=== PATIENT | female | born 2000 | race Caucasian/White ===

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

== ENCOUNTER 2020-11-28 18:16 | Outpatient (CLI) | payer OTHER ==
[~2020-11-28 18:16] MED LIST: CLEOCIN HCL300 MG PO; DOXYCYCLINE HY100 MG PO; FLAGYL500 MG PO; FLEXERIL 10 MG10 MG PO; IBU800 MG PO; PEPCID20 MG PO; PHENERGAN 12.12.5 M1 PO; PHENERGAN25 MG PR; PROTONIX40 MG PO; VIBRAMYCIN100 MG PO; ZOFRAN4 MG PO
== END 2020-11-28 21:54 | disposition home or self-care (01) ==
LOC: GENOP 18:16
DX: O99.891 Other specified diseases and conditions complicating pregnancy (principal); M54.9 Dorsalgia, unspecified; R04.0 Epistaxis; Z3A.25 25 weeks gestation of pregnancy; Z20.822 Contact with and (suspected) exposure to COVID-19
CPT/HCPCS: 59025; 81001; 96360; J2550; U0002

== ENCOUNTER → 2021-01-09 | Outpatient (CLI) | payer OTHER | LOC: GENOP 22:37 | DX: O46.93 Antepartum hemorrhage, unspecified, third trimester (principal); Z3A.30 30 weeks gestation of pregnancy | CPT/HCPCS: 81001; G0463 ==

== ENCOUNTER 2021-01-22 22:06 | Outpatient (CLI) | payer OTHER | END 2021-01-23 00:57 | disposition home or self-care (01) | LOC: GENOP 22:06 | DX: O62.9 Abnormality of forces of labor, unspecified (principal); Z3A.30 30 weeks gestation of pregnancy; Z87.891 Personal history of nicotine dependence | CPT/HCPCS: 81001; 96360; 96361; 96374; J2405 ==

== ENCOUNTER 2021-02-01 14:41 | Outpatient (CLI) | payer OTHER ==
[~2021-02-01] VITALS: Ht 152.4 cm; Wt 104.3 kg
== END 2021-02-02 02:20 | disposition home or self-care (01) ==
LOC: GENOP 14:41
PROVIDERS: Obstetrics & Gynecology
DX: O42.913 Preterm premature rupture of membranes, unspecified as to length of time between rupture and onset of labor, third trimester (principal); O99.891 Other specified diseases and conditions complicating pregnancy; M54.9 Dorsalgia, unspecified; O62.4 Hypertonic, incoordinate, and prolonged uterine contractions; O99.353 Diseases of the nervous system complicating pregnancy, third trimester; G43.909 Migraine, unspecified, not intractable, without status migrainosus; Z3A.34 34 weeks gestation of pregnancy; Z87.440 Personal history of urinary (tract) infections
CPT/HCPCS: 80307; 81001; 83518; 96360; 96361; 96365; 96372; J2300; J3105; J7120

== ENCOUNTER 2021-02-02 07:01 | Outpatient (CLI) | payer OTHER | END 2021-02-02 11:01 | disposition other institution (70) | LOC: GENOP 07:01 | DX: O62.9 Abnormality of forces of labor, unspecified (principal); Z3A.33 33 weeks gestation of pregnancy | CPT/HCPCS: 51702; 96360; 96361; 96365; 96366; 96367; 96372; J0595; J0690; J0702; J2270; J3410; J3475 ==

== ENCOUNTER → 2021-09-27 | Emergency (ER) | payer OTHER ==
[~2021-09-27] MED LIST changes: +CEFUROXIME500 MG PO
[2021-09-27 11:09] LABS: HEMOGLOBIN 14.4 gm/dl (12.3-15.3); RED BLOOD COUNT 4.48 M/UL (4.00-5.10); WHITE BLOOD COUNT 6.5 K/UL (4.5-11.0)
[2021-09-27 11:39] LABS: BUN/CREATININE RATIO 11 (0-10)
== END | disposition home or self-care (01) ==
LOC: ER1 10:05
PROVIDERS: Nurse Practitioner
DX: R31.9 Hematuria, unspecified (principal); R10.816 Epigastric abdominal tenderness; Z88.2 Allergy status to sulfonamides; F17.290 Nicotine dependence, other tobacco product, uncomplicated
CPT/HCPCS: 80053; 81001; 82550; 82553; 83690; 83874; 84484; 84703; 85025; 86140; 96374; 96375; 99284; C9113; J1885; J2405

== ENCOUNTER 2021-10-02 18:57 | Emergency (ER) | payer OTHER | END 2021-10-02 20:00 | disposition left against medical advice (07) | LOC: ER1 18:57 | DX: Z53.21 Procedure and treatment not carried out due to patient leaving prior to being seen by health care provider (principal) ==

== ENCOUNTER 2021-11-04 01:42 | Emergency (ER) | payer OTHER ==
[2021-11-04 02:19] LABS: HEMOGLOBIN 12.9 gm/dl (12.3-15.3); RED BLOOD COUNT 4.2 M/UL (4.00-5.10); WHITE BLOOD COUNT 6.5 K/UL (4.5-11.0)
[2021-11-04 02:55] LABS: BUN/CREATININE RATIO 14 (0-10)
[2021-11-04] MEDS ORDERED: ZOFRAN ODT 4 MG4 MG PO (04:41)
[2021-11-04] MEDS ORDERED: LODINE CAP 300300 MG PO (04:41)
[2021-11-04] MEDS ORDERED: BENTYL 20MG TAB20 MG PO (04:41)
== END 2021-11-04 06:44 | disposition home or self-care (01) ==
LOC: ER1 01:42
PROVIDERS: Physician Assistant
DX: I88.0 Nonspecific mesenteric lymphadenitis (principal); F17.290 Nicotine dependence, other tobacco product, uncomplicated; Z88.2 Allergy status to sulfonamides
CPT/HCPCS: 80053; 81001; 83605; 83690; 84703; 85025; 87086; 96374; 96375; 99284; J1885; J2405; Q9967

== ENCOUNTER 2021-11-15 03:12 | Emergency (ER) | payer OTHER ==
[~2021-11-15 03:12] MED LIST changes: +BENTYL 20MG TAB20 MG PO; +LODINE CAP 300300 MG PO; +ZOFRAN ODT 4 MG4 MG PO
[2021-11-15 03:31] LABS: HEMOGLOBIN 14.5 gm/dl (12.3-15.3); RED BLOOD COUNT 4.68 M/UL (4.00-5.10); WHITE BLOOD COUNT 4.7 K/UL (4.5-11.0)
[2021-11-15 03:54] LABS: BUN/CREATININE RATIO 14 (0-10)
[2021-11-15] MEDS ORDERED: ZOFRAN 4 MG TAB4 MG PO (04:56)
[2021-11-15] MEDS ORDERED: PROTONIX40 MG PO (05:01)
== END 2021-11-15 05:20 | disposition home or self-care (01) ==
LOC: ER1 03:12
PROVIDERS: Physician Assistant
DX: R10.9 Unspecified abdominal pain (principal); R10.816 Epigastric abdominal tenderness; Z88.2 Allergy status to sulfonamides; F17.200 Nicotine dependence, unspecified, uncomplicated; R00.0 Tachycardia, unspecified
CPT/HCPCS: 80053; 81001; 83690; 84703; 85025; 96374; 96375; 99284; C9113; J2405

== ENCOUNTER → 2021-11-21 | Outpatient (CLI) | payer OTHER ==
[~2021-11-21] MED LIST changes: +ZOFRAN 4 MG TAB4 MG PO
== END ==
LOC: KOH-I 09:43
DX: R10.84 Generalized abdominal pain (principal); R79.89 Other specified abnormal findings of blood chemistry; K80.20 Calculus of gallbladder without cholecystitis without obstruction
CPT/HCPCS: 76705

== ENCOUNTER → 2021-12-05 | Day surgery (SDC) | payer OTHER ==
[~2021-12-05] MED LIST changes: +ADIPEX-P37.5 M1 PO; +CEFDINIR300 MG PO; +HYDROCODON-ACE1 EAC4 PO; +ONDANSETRON ODT4 MG PO
== END | disposition home or self-care (01) ==
LOC: OR 07:08
DX: K80.64 Calculus of gallbladder and bile duct with chronic cholecystitis without obstruction (principal); Z20.822 Contact with and (suspected) exposure to COVID-19; Z88.2 Allergy status to sulfonamides; Z97.5 Presence of (intrauterine) contraceptive device; Z87.891 Personal history of nicotine dependence
CPT/HCPCS: C1729; J0690; J1170; J1885; J2250; J2704; J3010; J7030; J7120

== ENCOUNTER 2021-12-07 16:24 | Emergency (ER) | payer OTHER ==
[2021-12-07 17:15] LABS: HEMOGLOBIN 13.1 gm/dl (12.3-15.3); RED BLOOD COUNT 4.16 M/UL (4.00-5.10); WHITE BLOOD COUNT 7.1 K/UL (4.5-11.0)
[2021-12-07 17:38] LABS: BUN/CREATININE RATIO 14 (0-10)
== END 2021-12-07 17:27 | disposition home or self-care (01) ==
LOC: ER1 16:24
PROVIDERS: Nurse Practitioner
DX: R10.13 Epigastric pain (principal); R10.817 Generalized abdominal tenderness; Z88.2 Allergy status to sulfonamides; F17.290 Nicotine dependence, other tobacco product, uncomplicated
CPT/HCPCS: 80053; 80076; 81001; 82150; 83690; 85025; 99283

== ENCOUNTER 2021-12-10 03:02 | Emergency (ER) | payer OTHER ==
[2021-12-10 03:26] LABS: HEMOGLOBIN 13.3 gm/dl (12.3-15.3); RED BLOOD COUNT 4.2 M/UL (4.00-5.10); WHITE BLOOD COUNT 7.8 K/UL (4.5-11.0)
[2021-12-10 03:44] LABS: BUN/CREATININE RATIO 16 (0-10)
[2021-12-10] MEDS ORDERED: PROTONIX40 MG PO (05:35)
[2021-12-10] MEDS ORDERED: CARAFATE1 GM PO (05:35)
[2021-12-10] MEDS ORDERED: ONDANSETRON ODT4 MG SL (05:35)
[2021-12-10] MEDS ORDERED: CEPHALEXIN500 M1 PO (05:35)
[2021-12-11 09:16] LABS: HBSAG SCREEN Negative (Negative); HEP A AB, IGM Negative (Negative); HEP B CORE AB, IGM Negative (Negative); HEP C VIRUS AB <0.1 (0.0-0.9)
== END 2021-12-10 05:58 | disposition home or self-care (01) ==
LOC: ER1 03:02
PROVIDERS: Physician Assistant
DX: N39.0 Urinary tract infection, site not specified (principal); Z90.49 Acquired absence of other specified parts of digestive tract; R79.89 Other specified abnormal findings of blood chemistry; F17.290 Nicotine dependence, other tobacco product, uncomplicated; Z88.2 Allergy status to sulfonamides; J45.909 Unspecified asthma, uncomplicated
CPT/HCPCS: 80053; 80074; 81001; 83690; 84703; 85025; 96374; 96375; 99284; C9113; J2270; J2405

== ENCOUNTER → 2021-12-11 | Outpatient (CLI) | payer OTHER ==
[~2021-12-11] MED LIST changes: +CARAFATE1 GM PO; +CEPHALEXIN500 M1 PO; +ONDANSETRON ODT4 MG SL
[2021-12-12 11:15] LABS: ALPHA-1-ANTITRYPSIN, SERUM 147 mg/dL (100-188)
[2021-12-12 12:15] LABS: HBSAG SCREEN Negative (Negative); HEP A AB, IGM Negative (Negative); HEP B CORE AB, IGM Negative (Negative); HEP C VIRUS AB <0.1 (0.0-0.9)
[2021-12-12 15:12] LABS: MITOCHONDRIAL (M2) ANTIBODY <20.0 Units (0.0-20.0)
== END ==
LOC: NM 12:24
PROVIDERS: Internal Medicine Gastroenterology
DX: R10.84 Generalized abdominal pain (principal); R79.89 Other specified abnormal findings of blood chemistry; R10.10 Upper abdominal pain, unspecified
CPT/HCPCS: 36415; 78226; 80074; 80076; 82103; 82728; 83540; 83550; 86038; A9537

== ENCOUNTER 2022-06-17 13:49 | Emergency (ER) | payer OTHER | END 2022-06-17 15:08 | disposition left against medical advice (07) | LOC: ER1 13:49 | DX: Z53.21 Procedure and treatment not carried out due to patient leaving prior to being seen by health care provider (principal) ==

== ENCOUNTER 2022-06-19 09:10 | Emergency (ER) | payer OTHER ==
[2022-06-19 10:25] LABS: HEMOGLOBIN 14.5 gm/dl (12.3-15.3); RED BLOOD COUNT 4.37 M/UL (4.00-5.10); WHITE BLOOD COUNT 6.7 K/UL (4.5-11.0)
[2022-06-19 10:48] LABS: BUN/CREATININE RATIO 20 (0-10)
== END 2022-06-19 12:41 | disposition home or self-care (01) ==
LOC: ER1 09:10
PROVIDERS: Physician Assistant
DX: R53.83 Other fatigue (principal); R51.9 Headache, unspecified; M79.10 Myalgia, unspecified site; F17.290 Nicotine dependence, other tobacco product, uncomplicated; Z88.2 Allergy status to sulfonamides; Z20.822 Contact with and (suspected) exposure to COVID-19
CPT/HCPCS: 80053; 81001; 84703; 85025; 99283; U0002